=== PATIENT | female | born 1965 | race Caucasian/White ===

== ENCOUNTER → 2021-03-01 | Outpatient (CLI) | payer OTHER ==
[2021-03-01 15:27] LABS: HEMOGLOBIN 14.7 gm/dl (12.3-15.3); RED BLOOD COUNT 4.72 M/UL (4.00-5.10)
[2021-03-01 15:52] LABS: BUN/CREATININE RATIO 15 (0-10)
[2021-03-03 13:11] LABS: CHOLESTEROL, TOTAL 246 mg/dL (100-199); HDL-C 70 mg/dL (>39); HDL-P (TOTAL) 34.4 umol/L (>=30.5); LARGE HDL-P 10.1 umol/L (>=4.8); LARGE VLDL-P 1.8 nmol/L (<=2.7); LDL SIZE 21.6 nm (>20.5); LDL SIZE 21.6 nm (>=20.8); LDL-C 162 mg/dL (0-99); LDL-P 1467 nmol/L (<1000); LP-IR SCORE <25 (<=45); SMALL LDL-P 306 nmol/L (<=527); TRIGLYCERIDES 84 mg/dL (0-149); VLDL SIZE 42.9 nm (<=46.6)
== END ==
LOC: LAB 14:43
PROVIDERS: Emergency Medicine
DX: J43.8 Other emphysema (principal); F41.1 Generalized anxiety disorder; Z88.0 Allergy status to penicillin
CPT/HCPCS: 36415; 71046; 80053; 80061; 83704; 84443; 85025